=== PATIENT | female | born 1975 | race Caucasian/White ===

== ENCOUNTER → 2019-12-29 08:03 | Outpatient (BNVA) | payer SELFPAY | PROVIDERS: Family Provider Nurse Practitioner Family; PCP Nurse Practitioner Family; Visit Provider Specialist | DX: G40.309 Generalized idiopathic epilepsy and epileptic syndromes, not intractable, without status epilepticus (principal); R25.1 Tremor, unspecified; G96.9 Disorder of central nervous system, unspecified; F17.210 Nicotine dependence, cigarettes, uncomplicated | CPT/HCPCS: 99213 ==

== ENCOUNTER 2020-08-08 13:52 | Emergency (ER) | payer SELFPAY ==
[2020-08-08 14:11] VITALS: BP 117/78; PULSE 88; RESP 18; TEMP 36.5; O2SAT 97; BMI 28.1
[2020-08-08 16:10] LABS: Basophils # 0.1 10^3/uL (0.0-0.1); Basophils % 0.5 %; Eosinophils # 0.5 10^3/uL (0.0-0.8); Eosinophils % 3.9 %; Hematocrit 41.5 % (37.0-47.0); Hemoglobin 13.6 g/dL (11.5-15.3); Lymphocytes # 4.1 10^3/uL (0.8-4.8); Lymphocytes % 34.6 %; Mean Corpuscular HGB Conc 32.8 g/dL (30.0-36.0); Mean Corpuscular Hemoglobin 32.2 pg (28.0-34.0); Mean Corpuscular Volume 98.1 fL (81-99); Mean Platelet Volume 10.3 fL (7.4-10.4); Monocytes % 8.3 %; Neutrophils # 6.23 10^3/uL (1.8-7.7); Neutrophils % 52.4 %; Nucleated Red Blood Cells % 0 %; Platelet Count 295 10^3/cmm (130-400); Red Blood Count 4.23 10^6/uL (4.1-5.3); Red Cell Distribution Width 11.9 % (12.1-15.1); White Blood Count 11.9 10^3/uL (4.0-10.0)
[2020-08-08 16:26] LABS: HCG, Serum Qual Negative (Negative)
[2020-08-08 16:30] LABS: Alanine Aminotransferase 14 U/L (0-33); Albumin Level 3.9 g/dL (3.5-5.2); Alkaline Phosphatase 64 IU/L (35-105); Anion Gap 11.3 (5-19); Aspartate Amino Transferase 17 U/L (0-32); Blood Urea Nitrogen 14 mg/dL (6-20); Carbon Dioxide 26 mmol/L (22-29); Chloride 104 mmol/L (98-107); Globulin 3.3 g/dL (1.3-4.6); Glucose 103 mg/dL (65-115); Lipase 60 U/L (13-60); Osmolality Calculated 280 mOsm/kg (285-295); Potassium 4.3 mmol/L (3.5-5.1); Sodium 137 mmol/L (136-145); Total Bilirubin 0.3 mg/dL (0.15-1.2); Total Protein 7.2 g/dL (6.6-8.7)
--- NOTE | 2020-08-08 17:16 | W.ED.ABDPA2 ---
HPI - Abdominal Pain General: Chief Complaint: Abdominal Pain Stated Complaint: r abd pain Time Seen by Provider: 08/08/20 17:05 History of Present Illness: HPI narrative: Patient with right lower quadrant pain for last couple days. Mild she states she had symbolic vomit yesterday and this morning. Denies any dysuria denies any fever chills. MD elicited complaint: abdominal pain Onset (ago): day(s) Pain Consistency: constant Location: RLQ Severity: mild Quality: cramping Radiation: none Migration to: no migration Exacerbating factors: nothing Relieving factors: nothing Associated Symptoms: Reports nausea and vomiting; Denies chills, dysuria and fever(s) Review of Systems General: Reports: 10 or more systems reviewed and unremarkable except in HPI and below Const: Denies: fever(s), chills or diaphoresis Eyes: Denies: blurry vision or eye redness ENMT: Denies: throat pain, dental pain or disequilibrium Card: Denies: chest pain, palpitations or irregular heart rhythm Resp: Denies: dyspnea, productive cough, non-productive cough or wheezing GI: Reports: abdominal pain, nausea and vomiting : Denies: difficulty voiding or dysuria Musc: Denies: back pain Skin/Breast: Denies: rash or pruritus Neuro: Denies: headache(s), weakness in extremities or behavioral changes Ryan/Lymph: Denies: easy bruising PFSH ED PFSH: Family History (Updated 12/29/19 @ 08:20 by Princess Milton LPN) Other Diabetes Denies family history of Hypertension Stroke Social History (Updated 12/29/19 @ 08:21 by Princess Milton LPN) Smoking and tobacco status: current every day smoker cigarettes Packs smoked per day: 0.5 Alcohol intake: never Physical Exam Const: COMMON NORMALS: no acute distress, patient oriented x3, healthy appearing and alert GENERAL APPEARANCE: cooperative, comfortable and well hydrated HENMT: COMMON NORMALS: normocephalic, Normal external nose present and moist oral mucous membranes HEAD & SCALP: normocephalic NOSE: Normal external nose present Eye: COMMON NORMALS: Equal, round and reactive pupils present and EOMs intact bilaterally GENERAL EYE: appearance normal, both eyes and all related structures PUPIL: Yes Equal, round and reactive pupils present Neck/C-Spine: COMMON NORMALS: full ROM and no lymphadenopathy GENERAL: Yes normal visual inspection and Yes trachea midline CERVICAL SPINE: Yes cervical ROM normal Lymph: LYMPHATIC: no lymphadenopathy noted Chest: COMMONS NORMALS: normal inspection of the chest Resp: COMMON NORMALS: normal respiratory effort and clear to auscultation bilaterally AUSCULTATION: clear to auscultation bilaterally Cardio: COMMON NORMALS: regular rhythm, S1 normal heart sound present and S2 normal heart sound present RHYTHM: regular rhythm HEART SOUNDS: S1 normal heart sound present and S2 normal heart sound present GI: COMMON NORMALS: Soft to palpation and non-tender INSPECTION: Yes normal to inspection PALPATION: Yes Soft to palpation and Yes Tenderness to palpation present (GI) Details: RLQ : COMMON NORMALS: Yes no CVA tenderness BLADDER/KIDNEY EXAM: Yes no CVA tenderness Back/Pelvis: COMMON NORMALS: no CVA tenderness and thoracic and lumbar spine normal to inspection Extremity: COMMON NORMALS: normal to inspection and capillary refill normal Neuro: COMMON NORMALS: patient oriented x3 and no focal motor deficits SENSORIUM/ORIENTATION: Yes alert Psych: COMMON NORMALS: mental status grossly normal, Normal thought process present and cooperative ACTIVITY/MOTOR BEHAVIOR: Yes appropriate eye contact THOUGHT PROCESS: Normal thought process present Skin: COMMON NORMALS: no rashes or lesions noted and turgor normal GENERAL SKIN EXAM: no rashes or lesions noted and turgor normal Course Vital Signs: Vital signs: Vital Signs Temperature 97.7 F 08/08/20 14:11 Pulse Rate 88 08/08/20 14:11 Respiratory Rate 18 08/08/20 14:11 Blood Pressure 117/78 08/08/20 14:11 Pulse Oximetry 97 08/08/20 14:11 MDM - Abdominal Pain Lab Data: Labs: Lab Results 08/08/20 08/08/20 08/08/20 Range/Units 16:03 16:03 16:03 WBC 11.9 H (4.0-10.0) 10^3/ uL RBC 4.23 (4.1-5.3) 10^6/u L Hgb 13.6 (11.5-15.3) g/dL Hct 41.5 (37.0-47.0) % MCV 98.1 (81-99) fL MCH 32.2 (28.0-34.0) pg MCHC 32.8 (30.0-36.0) g/dL RDW 11.9 L (12.1-15.1) % Plt Count 295 (130-400) 10^3/c mm MPV 10.3 (7.4-10.4) fL Neut % (Auto) 52.4 % Lymph % (Auto) 34.6 % [place] % (Auto) 8.3 % Eos % (Auto) 3.9 % Baso % (Auto) 0.5 % Neut # (Auto) 6.23 (1.8-7.7) 10^3/u L Lymph # (Auto) 4.1 (0.8-4.8) 10^3/u L [place] # (Auto) 1.0 H (0.2-0.9) 10^3/u L Eos # (Auto) 0.5 (0.0-0.8) 10^3/u L Baso # (Auto) 0.1 (0.0-0.1) 10^3/u L Nucleated RBC % (a uto) 0 % Nucleated RBCs # 0.0 /100WBC Sodium 137 (136-145) mmol/L Potassium 4.3 (3.5-5.1) mmol/L Chloride 104 (98-107) mmol/L Carbon Dioxide 26 (22-29) mmol/L Anion Gap 11.3 (5-19) BUN 14 (6-20) mg/dL Creatinine 0.9 (0.5-0.9) mg/dL GFR Calculation 68.0 L (90-130) mL/min Glucose 103 (65-115) mg/dL Calculated Osmolal ity 280 L (285-295) mOsm/k g Calcium 9.0 (8.5-10.5) mg/dL Total Bilirubin 0.3 (0.15-1.2) mg/dL AST 17 (0-32) U/L ALT 14 (0-33) U/L Alkaline Phosphata se 64 (35-105) IU/L Total Protein 7.2 (6.6-8.7) g/dL Albumin 3.9 (3.5-5.2) g/dL Globulin 3.3 (1.3-4.6) g/dL Lipase 60 (13-60) U/L HCG, Qual Negative (Negative) Urine Color (Yellow) Urine Appearance (CLEAR) Urine pH (5-7) Ur Specific Gravit y (1.005-1.030) Urine Protein (Negative) Urine Glucose (UA) (Normal) Urine Ketones (Negative) Urine Blood (Negative) Urine Nitrate (Negative) Urine Bilirubin (NEGATIVE) Urine Urobilinogen (Negative) mg/dL Ur Leukocyte Juli ase (Negative) Urine RBC (0-2) /hpf Urine WBC (0-5) /hpf Ur Squamous Epith Cells (0-5) Amorphous Sediment Urine Bacteria (NONE) Urine Mucus 08/08/20 Range/Units 17:44 WBC (4.0-10.0) 10^3/ uL RBC (4.1-5.3) 10^6/u L Hgb (11.5-15.3) g/dL Hct (37.0-47.0) % MCV (81-99) fL MCH (28.0-34.0) pg MCHC (30.0-36.0) g/dL RDW (12.1-15.1) % Plt Count (130-400) 10^3/c mm MPV (7.4-10.4) fL Neut % (Auto) % Lymph % (Auto) % [place] % (Auto) % Eos % (Auto) % Baso % (Auto) % Neut # (Auto) (1.8-7.7) 10^3/u L Lymph # (Auto) (0.8-4.8) 10^3/u L [place] # (Auto) (0.2-0.9) 10^3/u L Eos # (Auto) (0.0-0.8) 10^3/u L Baso # (Auto) (0.0-0.1) 10^3/u L Nucleated RBC % (a uto) % Nucleated RBCs # /100WBC Sodium (136-145) mmol/L Potassium (3.5-5.1) mmol/L Chloride (98-107) mmol/L Carbon Dioxide (22-29) mmol/L Anion Gap (5-19) BUN (6-20) mg/dL Creatinine (0.5-0.9) mg/dL GFR Calculation (90-130) mL/min Glucose (65-115) mg/dL Calculated Osmolal ity (285-295) mOsm/k g Calcium (8.5-10.5) mg/dL Total Bilirubin (0.15-1.2) mg/dL AST (0-32) U/L ALT (0-33) U/L Alkaline Phosphata se (35-105) IU/L Total Protein (6.6-8.7) g/dL Albumin (3.5-5.2) g/dL Globulin (1.3-4.6) g/dL Lipase (13-60) U/L HCG, Qual (Negative) Urine Color Yellow (Yellow) Urine Appearance Cloudy (CLEAR) Urine pH 5 (5-7) Ur Specific Gravit y 1.030 (1.005-1.030) Urine Protein Neg (Negative) Urine Glucose (UA) Norm (Normal) Urine Ketones Negative (Negative) Urine Blood 3+ H (Negative) Urine Nitrate Negative (Negative) Urine Bilirubin Neg (NEGATIVE) Urine Urobilinogen Neg (Negative) mg/dL Ur Leukocyte Juli ase Trace H (Negative) Urine RBC 50-80 H (0-2) /hpf Urine WBC 40-55 H (0-5) /hpf Ur Squamous Epith Cells 5-10 H (0-5) Amorphous Sediment Not Reportable Urine Bacteria 1+ H (NONE) Urine Mucus 1+ Discharge Plan Discharge Patient Disposition: Home Clinical Impression: Abdominal pain Qualifiers: Abdominal location: right lower quadrant Qualified Code(s): R10.31 - Right lower quadrant pain Hematuria Qualifiers: Hematuria type: benign essential microscopic Qualified Code(s): R31.1 - Benign essential microscopic hematuria Condition: Stable Prescriptions: No Action levetiracetam [Keppra XR] 500 mg tablet extended release 24 hr 2,000 mg PO DAILY Qty: 120 RF: 11 propranolol 20 mg tablet 40 mg PO DAILY Qty: 60 RF: 11 Discharge Orders: Discharge Order (Routine); Ordered 08/08/20 Ordered By: Damon Ma Referrals: ALEJANDRA Reynaga, [employer] [Primary Care Provider] - Discharge Diet: As Directed Discharge Activity: Increase activity as tolerated Patient Instructions: Abdominal Pain (ED) Activity Restrictions/Additional Instructions: follow up with your health provider for further problems if they develop or return here if worsening of symptoms, recheck urine in 1 week Coding Level of Care Code ED Vacuum Drier Operator for g Fwd Exam Comprehensive
[2020-08-08 18:25] LABS: Glucose Urine UA Norm (Normal); Ketones Urine Negative (Negative); Protein Urine Neg (Negative); Urine Appearance Cloudy (CLEAR); Urine Color Yellow (Yellow); pH Urine 5 (5-7)
[2020-08-08 18:26] LABS: Add Urine Microscopic? YES; Bacteria Urine 1+; Bilirubin Urine Neg (NEGATIVE); Blood Urine 3+ (Negative); Leukocyte Esterase Urine Trace (Negative); Mucus Urine 1+; Nitrate Urine Negative (Negative); RBC Urine 50-80 /hpf (0-2); Urobilinogen Urine Neg (Negative); WBC Urine 40-55 /hpf (0-5)
[2020-08-08 18:27] LABS: Add Urine Culture? Yes
[2020-08-08 18:50] VITALS: BP 118/74; PULSE 72; RESP 17; O2SAT 98
== END 2020-08-08 18:53 | disposition home or self-care (01) ==
PROVIDERS: Family Medicine; Emergency Provider Nurse Practitioner Family; PCP Nurse Practitioner Family
DX: R10.31 Right lower quadrant pain (principal); R31.1 Benign essential microscopic hematuria; F17.210 Nicotine dependence, cigarettes, uncomplicated
CPT/HCPCS: 12345; 36415; 80053; 81001; 83690; 84703; 85025; 87086; 96374; 99282; 99283

== ENCOUNTER → 2020-12-25 08:48 | Outpatient (BNVA) | payer SELFPAY | PROVIDERS: PCP Nurse Practitioner Family; Visit Provider Specialist | DX: R25.1 Tremor, unspecified (principal); G96.9 Disorder of central nervous system, unspecified; G40.309 Generalized idiopathic epilepsy and epileptic syndromes, not intractable, without status epilepticus; F17.210 Nicotine dependence, cigarettes, uncomplicated | CPT/HCPCS: 99213 ==

== ENCOUNTER → 2021-05-02 08:12 | Outpatient (BNVA) | payer SELFPAY | PROVIDERS: PCP Nurse Practitioner Family; Visit Provider Specialist | DX: R25.1 Tremor, unspecified (principal); G96.9 Disorder of central nervous system, unspecified; G40.309 Generalized idiopathic epilepsy and epileptic syndromes, not intractable, without status epilepticus; F17.210 Nicotine dependence, cigarettes, uncomplicated | CPT/HCPCS: 99213 ==

== ENCOUNTER 2021-06-13 06:52 | Inpatient (IN) | payer SELFPAY ==
[2021-06-13 07:05] VITALS: BP 143/106; PULSE 107; RESP 20; TEMP 37.4; O2SAT 98; BMI 26.6
--- NOTE | 2021-06-13 07:24 | W.ED.PSYCH ---
HPI - Psych General: Chief Complaint: Psychiatric Symptoms Stated Complaint: unable to sleep x 4 days Time Seen by Provider: 06/13/21 07:01 History of Present Illness: HPI Narrative: 46-year-old female presents emergency room with her mother. She is very hesitant even to go to the room initially. When I asked her what brought her in today and what we could help her with she did not really want to answer until her mother left the room. Once her mother left the room she afforded us that she had enough money to buy the hospital. She also states that she has more money than Caio Herrmann on several buildings downtown [facility]. She states she had a vision from God several years ago and she should not be with her and still gets visions from God. She offered myself and the nursing staff on $1 million to be in a movie that she would be making. She admits she has not slept for the last 4 days. She denies previous psychiatric hospitalizations she denies any suicidal or homicidal ideation. MD complaint: altered mental status Onset (ago): day(s) Duration: constant Relieving factors: none Exacerbating factors: none Associated psychiatric symptoms: none Associated symptoms: Reports auditory hallucinations, visual hallucinations, delusions and racing thoughts Treatments prior to arrival: none Review of Systems Const: Denies: fever(s), chills, body aches, change in appetite, fatigue or malaise ENMT: Denies: throat pain, ear or mastoid pain, nasal discharge or nasal congestion Card: Denies: chest pain, edema, dyspnea on exertion or orthopnea Resp: Denies: dyspnea, productive cough or non-productive cough GI: Denies: abdominal pain, nausea, vomiting, hematemesis, coffee ground emesis, diarrhea, constipation, bloating, hematochezia or melena : Denies: flank pain, difficulty voiding, dysuria, urinary frequency or urinary urgency Skin/Breast: Denies: rash or pruritus Psych: Reports: visual hallucinations and auditory hallucinations PFSH ED PFSH: Family History Other Diabetes Denies family history of Hypertension Stroke Social History Smoking and tobacco status: current every day smoker cigarettes Packs smoked per day: 0.5 Alcohol intake: never Physical Exam Const: COMMON NORMALS: no acute distress GENERAL APPEARANCE: cooperative and comfortable ORIENTATION/CONSCIOUSNESS: Yes awake, Yes oriented to person, Yes oriented to place and Yes oriented to time HENMT: COMMON NORMALS: normocephalic, atraumatic, hearing grossly normal bilaterally and external ears normal HEAD & SCALP: normocephalic and atraumatic EXTERNAL EAR: Yes external ears normal Neck/C-Spine: COMMON NORMALS: no JVD Resp: COMMON NORMALS: normal respiratory effort, No retractions, No use of accessory muscles and clear to auscultation bilaterally AUSCULTATION: clear to auscultation bilaterally Cardio: COMMON NORMALS: no JVD, regular rate, regular rhythm and No murmurs present (Cardio) RATE: regular rate RHYTHM: regular rhythm Neuro: SENSORIUM/ORIENTATION: Yes oriented to person, Yes oriented to place and Yes oriented to time Psych: THOUGHT CONTENT: Yes delusions Skin: COMMON NORMALS: no rashes or lesions noted GENERAL SKIN EXAM: no rashes or lesions noted Course Vital Signs: Vital signs: Vital Signs Temperature 98.8 F 06/13/21 14:00 Pulse Rate 79 06/13/21 14:00 Respiratory Rate 20 H 06/13/21 14:00 Blood Pressure 122/82 06/13/21 14:00 Pulse Oximetry 95 06/13/21 14:00 MDM - Psych MDM Narrative: Medical decision making narrative: Patient in a manic-like state with paranoid delusions and delusions of grandeur. She states she is worse large sums of money she is going to buy the hospital she does offers the staff $1 million each to do different things or to act in a movie she talks about direct visions from God and instruction. She is having auditory and visual hallucinations with this as well we will go ahead and admit her on a 96-hour hold discussed with Dr. Alonzo orders are written Lab Data: Labs: Lab Results 06/13/21 06/13/21 06/13/21 Range/Units 07: 07: 07:57 WBC 14.5 H (4.0-10.0) 10^3/ uL RBC 4.17 (4.1-5.3) 10^6/u L Hgb 13.3 (11.5-15.3) g/dL Hct 38.9 (37.0-47.0) % MCV 93.3 (81-99) fL MCH 31.9 (28.0-34.0) pg MCHC 34.2 (30.0-36.0) g/dL RDW 12.0 L (12.1-15.1) % Plt Count 318 (130-400) 10^3/c mm MPV 10.6 H (7.4-10.4) fL Neut % (Auto) 73.3 % Lymph % (Auto) 17.8 % Marshall % (Auto) 6.8 % Eos % (Auto) 1.1 % Baso % (Auto) 0.7 % Neut # (Auto) 10.60 H (1.8-7.7) 10^3/u L Lymph # (Auto) 2.6 (0.8-4.8) 10^3/u L Marshall # (Auto) 1.0 H (0.2-0.9) 10^3/u L Eos # (Auto) 0.2 (0.0-0.8) 10^3/u L Baso # (Auto) 0.1 (0.0-0.1) 10^3/u L Nucleated RBC % (a uto) 0 % Nucleated RBCs # 0.0 /100WBC Sodium 138 (136-145) mmol/L Potassium 3.9 (3.5-5.1) mmol/L Chloride 103 (98-107) mmol/L Carbon Dioxide 23 (22-29) mmol/L Anion Gap 15.9 (5-19) BUN 14 (6-20) mg/dL Creatinine 0.8 (0.5-0.9) mg/dL GFR Calculation 77.6 L (90-130) mL/min Glucose 136 H (65-115) mg/dL Calculated Osmolal ity 289 (285-295) mOsm/k g Calcium 8.9 (8.5-10.5) mg/dL Total Bilirubin 0.6 (0.15-1.2) mg/dL AST 29 (0-32) U/L ALT 16 (0-33) U/L Alkaline Phosphata se 82 (35-105) IU/L Total Protein 7.4 (6.6-8.7) g/dL Albumin 4.2 (3.5-5.2) g/dL Globulin 3.2 (1.3-4.6) g/dL HCG, Qual Negative (Negative) Urine Color (Yellow) Urine Appearance (CLEAR) Urine pH (5-7) Ur Specific Gravit y (1.005-1.030) Urine Protein (Negative) Urine Glucose (UA) (Normal) Urine Ketones (Negative) Urine Blood (Negative) Urine Nitrate (Negative) Urine Bilirubin (Negative) Urine Urobilinogen (Negative) mg/dL Ur Leukocyte Juli ase (Negative) Urine RBC (0-2) /hpf Urine WBC (0-5) /hpf Ur Squamous Epith Cells (0-5) /hpf Amorphous Sediment Urine Bacteria (NONE) /hpf Salicylates 2.6 L (3-10) mg/dL Urine Opiates Scre en (Negative) ng/mL Acetaminophen < 5.0 L (10-30) ug/mL Ur Barbiturates Sc reen (Negative) ng/mL Ur Phencyclidine S crn (Negative) ng/mL Ur Amphetamines Sc reen (Negative) ng/mL U Benzodiazepines Scrn (Negative) ng/mL Urine Cocaine Scre en (Negative) ng/mL U Marijuana (THC) Screen (Negative) ng/mL 06/13/21 06/13/21 Range/Units 07:57 07:57 WBC (4.0-10.0) 10^3/ uL RBC (4.1-5.3) 10^6/u L Hgb (11.5-15.3) g/dL Hct (37.0-47.0) % MCV (81-99) fL MCH (28.0-34.0) pg MCHC (30.0-36.0) g/dL RDW (12.1-15.1) % Plt Count (130-400) 10^3/c mm MPV (7.4-10.4) fL Neut % (Auto) % Lymph % (Auto) % Marshall % (Auto) % Eos % (Auto) % Baso % (Auto) % Neut # (Auto) (1.8-7.7) 10^3/u L Lymph # (Auto) (0.8-4.8) 10^3/u L Marshall # (Auto) (0.2-0.9) 10^3/u L Eos # (Auto) (0.0-0.8) 10^3/u L Baso # (Auto) (0.0-0.1) 10^3/u L Nucleated RBC % (a uto) % Nucleated RBCs # /100WBC Sodium (136-145) mmol/L Potassium (3.5-5.1) mmol/L Chloride (98-107) mmol/L Carbon Dioxide (22-29) mmol/L Anion Gap (5-19) BUN (6-20) mg/dL Creatinine (0.5-0.9) mg/dL GFR Calculation (90-130) mL/min Glucose (65-115) mg/dL Calculated Osmolal ity (285-295) mOsm/k g Calcium (8.5-10.5) mg/dL Total Bilirubin (0.15-1.2) mg/dL AST (0-32) U/L ALT (0-33) U/L Alkaline Phosphata se (35-105) IU/L Total Protein (6.6-8.7) g/dL Albumin (3.5-5.2) g/dL Globulin (1.3-4.6) g/dL HCG, Qual (Negative) Urine Color Colorless (Yellow) Urine Appearance Clear (CLEAR) Urine pH 7 (5-7) Ur Specific Gravit y 1.005 (1.005-1.030) Urine Protein Neg (Negative) Urine Glucose (UA) Norm (Normal) Urine Ketones Negative (Negative) Urine Blood 3+ H (Negative) Urine Nitrate Negative (Negative) Urine Bilirubin Neg (Negative) Urine Urobilinogen Norm (Negative) mg/dL Ur Leukocyte Juli ase Negative (Negative) Urine RBC 0-4 H (0-2) /hpf Urine WBC None (0-5) /hpf Ur Squamous Epith Cells 10-15 H (0-5) /hpf Amorphous Sediment Not Reportable Urine Bacteria None (NONE) /hpf Salicylates (3-10) mg/dL Urine Opiates Scre en Negative (Negative) ng/mL Acetaminophen (10-30) ug/mL Ur Barbiturates Sc reen Negative (Negative) ng/mL Ur Phencyclidine S crn Negative (Negative) ng/mL Ur Amphetamines Sc reen Negative (Negative) ng/mL U Benzodiazepines Scrn Negative (Negative) ng/mL Urine Cocaine Scre en Negative (Negative) ng/mL U Marijuana (THC) Screen Negative (Negative) ng/mL Discharge Plan Discharge Patient Disposition: Admitted As Inpatient Admit Provider: Taylor Alonzo Clinical Impression: Acute psychosis, Psychotic disorder, Tremor due to disorder of central nervous system Condition: Stable Coding Level of Care Code ED Preventative Maintenance Technician for Shemarg Fwd Exam Detailed
[2021-06-13 07:29] LABS: Basophils # 0.1 10^3/uL (0.0-0.1); Basophils % 0.7 %; Eosinophils # 0.2 10^3/uL (0.0-0.8); Eosinophils % 1.1 %; Hematocrit 38.9 % (37.0-47.0); Hemoglobin 13.3 g/dL (11.5-15.3); Lymphocytes # 2.6 10^3/uL (0.8-4.8); Lymphocytes % 17.8 %; Mean Corpuscular HGB Conc 34.2 g/dL (30.0-36.0); Mean Corpuscular Hemoglobin 31.9 pg (28.0-34.0); Mean Corpuscular Volume 93.3 fL (81-99); Mean Platelet Volume 10.6 fL (7.4-10.4); Monocytes % 6.8 %; Neutrophils % 73.3 %; Nucleated Red Blood Cells % 0 %; Platelet Count 318 10^3/cmm (130-400); Red Blood Count 4.17 10^6/uL (4.1-5.3); White Blood Count 14.5 10^3/uL (4.0-10.0)
[2021-06-13 07:48] LABS: Alanine Aminotransferase 16 U/L (0-33); Albumin Level 4.2 g/dL (3.5-5.2); Alkaline Phosphatase 82 IU/L (35-105); Anion Gap 15.9 (5-19); Aspartate Amino Transferase 29 U/L (0-32); Blood Urea Nitrogen 14 mg/dL (6-20); Calcium 8.9 mg/dL (8.5-10.5); Carbon Dioxide 23 mmol/L (22-29); Chloride 103 mmol/L (98-107); Globulin 3.2 g/dL (1.3-4.6); Glomerular Filtration Rate 77.6 mL/min (90-130); Glucose 136 mg/dL (65-115); Osmolality Calculated 289 mOsm/kg (285-295); Potassium 3.9 mmol/L (3.5-5.1); Salicylate 2.6 mg/dL (3-10); Sodium 138 mmol/L (136-145); Total Bilirubin 0.6 mg/dL (0.15-1.2); Total Protein 7.4 g/dL (6.6-8.7)
[2021-06-13 07:49] LABS: Acetaminophen < 5.0 ug/mL (10-30)
[2021-06-13] MEDS: LORazepam 2 mg/mL INJ 1 mL 1 MG IM (07:58)
[2021-06-13] MEDS: OLANZapine 5 mg ODT PO (07:59)
[2021-06-13 08:04] LABS: HCG Qualitative Urine. Negative (Negative)
--- NOTE | 2021-06-13 08:20 | PC.NURSE ---
Small tick removed from right flank area
[2021-06-13 08:26] VITALS: BP 140/77; PULSE 79; RESP 18; O2SAT 95
--- NOTE | 2021-06-13 08:47 | PC.PHAR ---
pt states she takes care of her own medications-pt states she stop taking the carbidopa-levodopa a few weeks ago-pt states she didnt take it like it was prescribed-ext med history shows last filled on 05/02/21 15d/s-pt states she takes her keppra xr 750mg qpm-ext med history shows last filled on 05/02/21 30d/s for 1500mg daily
--- NOTE | 2021-06-13 09:13 | PC.NURSE ---
Patient was given medication to calm her down and is currently sleeping. Vitals at 0900 not done due to not disturbing patient.
[2021-06-13 09:33] LABS: Add Urine Microscopic? YES; Bilirubin Urine Neg (Negative); Blood Urine 3+ (Negative); Glucose Urine UA Norm (Normal); Ketones Urine Negative (Negative); Leukocyte Esterase Urine Negative (Negative); Nitrate Urine Negative (Negative); Protein Urine Neg (Negative); RBC Urine 0-4 /hpf (0-2); Specific Gravity, Urine 1.005 (1.005-1.030); Urine Appearance Clear (CLEAR); Urine Color Colorless (Yellow); Urobilinogen Urine Norm (Negative); pH Urine 7 (5-7)
[2021-06-13 09:45] LABS: Amphetamines Screen Urine Negative (Negative); Barbiturates Screen Urine Negative (Negative); Benzodiazepines Screen Urine Negative (Negative); Cocaine Screen Urine Negative (Negative); Opiate Screen Urine Negative (Negative); PCP Screen Urine Negative (Negative); THC Screen Urine Negative (Negative)
[2021-06-13 10:19] VITALS: BP 118/74; PULSE 64; RESP 19; TEMP 37.1; O2SAT 96
[2021-06-13 10:56] VITALS: BP 122/82; PULSE 79; RESP 20; TEMP 37.1; O2SAT 95
[2021-06-13] MEDS: OLANZapine 10 mg TABLET PO (11:37)
--- NOTE | 2021-06-13 13:42 | P.HP_ITS ---
Providers/Chief Complaint Admitting Physician: Taylor Alonzo DO Primary Care Provider: Ritu Lieberman MD Chief Complaint: unable to sleep x 4 days HPI NPU History of Present Illness Carmen Bruno is a 46 year old female seizures and no reported past psychiatric history presented to the emergency department with family secondary to concerns of patient's pressured speech, delusional thoughts and not sleeping over the past 4 days. Patient states that she had not slept for the past 4 days but does not recall any incidents or ingestion of any intoxicants other than her daily use of marijuana for which she states she typically smokes 1 joint a day at most and does not recall any changes from her usual use. She denies using any other illicit substances and denies any use of alcohol. Patient's last neurology outpatient visit in May indicated that she is supposed to be on Sinemet but patient reports no use of any Sinemet and reports Keppra as her only medication that she takes daily. Patient was trying to leave the ER and was provided a dose of olanzapine 5 mg while in emergency department. Patient had been medically cleared prior to admission. Patient denies any past or current depressive symptoms, denies any sustained low mood states, denies any past major depressive episodes and denies any past or current suicidal ideation or any history of suicide attempts or self-harm behavior. Patient describes a previous similar episode of having racing thoughts approximately 3 years ago which she states only lasted for a day or 2 which she describes as I have a bunch of things inside of my head that are trying to get out. She denies any periods of pressured speech, impulsive or reckless behavior. Patient reports that she has had past auditory hallucinations approximately 3 years ago but currently denies any auditory hallucinations. She denies any visual hallucinations but continues to speak with hyper lutheran themed delusi ons believing that her [id number] is possessed by demons and that voices are telling her to leave her . Psychiatric review of systems is otherwise negative. Patient denies past psychiatric treatment and denies past psychiatric hospitalizations but is currently followed by Dr. Lieberman outpatient for history of seizures. 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 Review of Systems General: Reports: 10 or more systems reviewed and unremarkable except in HPI and below Meds NPU Home Medications Medication Instructions Recorded Confirmed Last Taken Type Keppra XR 750 mg PO QPM 06/13/21 06/13/21 Unknown History acetaminophen [Tylenol Extra 1,000 mg PO PRN 06/13/21 06/13/21 Unknown History Strength] Allergies Allergy/AdvReac Type Severity Reaction Status Date / Time No Known Allergies Allergy Verified 06/13/21 08:47 PFSH NPU PFSH: Family History Other Diabetes Denies family history of Hypertension Stroke Social History Smoking and tobacco status: current every day smoker cigarettes Packs smoked per day: 0.5 Alcohol intake: never Other Psychiatric History: Other Psychiatric History: Per above, denies any past psychiatric treatment Denies any history of suicide attempts or self-harm behavior Mental Status Exam MSE Comments: Appears stated age, lying in bed, disheveled, unkempt, tired appearing, fair rapport Psychomotor activity is neither increased nor decreased, no agitation Speech is somewhat slow, low volume, spontaneous, fair articulation, not pressured I feel okay, constricted affect, not labile Alert but soporific, oriented to person, place Memory and concentration are fair per interview Intellectual functioning appears to be average based on vocabulary, interview Thought process, some delays, linear, no current flight of ideas Thought content, some grandiose delusions, does not appear to be attending to any internal stimuli, no suicidal or homicidal ideation Insight and judgment appear to be limited at this time Vitals/I&O/Wt Last Vital Signs Temp 98.8 F 06/13/21 10:56 Pulse 79 06/13/21 10:56 Resp 20 H 06/13/21 10:56 BP 122/82 06/13/21 10:56 Pulse Ox 95 06/13/21 10:56 Weight last 48 hrs Weight 77.111 kg Data NPU : 06/13/21 07:21 06/13/21 07:21 A&P Assessment and plan (1) Psychotic disorder: Status: Acute Qualifiers: Psychosis type: unspecified psychosis type Qualified Code(s): F29 - Unspecified psychosis not due to a substance or known physiological condition (2) Generalized epilepsy: Status: Acute (3) Tremor due to disorder of central nervous system: Status: Acute Additional A&P Information Patient with no reported past psychiatric history presents with [facility] with unclear precipitating factors and vague description of past manic episode 3 years ago with history of seizure disorder. Patient presenting with auditory hallucinations and grandiose, hyper lutheran themed delusions. INVOLUNTARY ADMIT to inpatient psychiatry START olanzapine 10 mg by mouth twice daily targeting psychotic, mood symptoms CONTINUE Keppra 1000 mg twice daily (patient takes Keppra XR 700 mg daily at home but this medication is not on formulary. Per patient's outpatient note she had previously been controlled on Keppra 1000 mg twice daily Coordinate with social work post discharge mental health care follow-up Involuntary Hold Information 96 Hour Hold: 96 Hour Involuntary Admission: Yes 96 Hour Hold Ending Date: 06/19/21 96 Hour Hold Ending Time: 07:00 Attestations NPU Medical Necessity Statement*: Psychiatric hospitalization is indicated for medication stabilization, coordination for safe discharge Anticipate hospital stay to exceed 2 midnights Time Spent in Patient Care: Greater than 35 minutes (>than 50% of time spent in counselling and/or direct pt care on unit) . Coding Level of Care Code Acute Library Technology Instructor for Rey Rojo Diagnoses Psychotic disorder F29 Psychosis type: unspecified psychosis type Generalized epilepsy G40.309 Tremor due to disorder of central nervous system R25.1; G96.9
[2021-06-13 14:00] VITALS: BP 122/82; PULSE 79; RESP 20; TEMP 37.1; O2SAT 95
--- NOTE | 2021-06-13 17:41 | PC.NURSE ---
pt refused to take Zyprexa 10mg at [facility] and only wanted to take half of her dose of Keppra. Dose ordered for Keppra 1000mg pt only took 500mg of Keppra. Pt stated that she doesn't want to be billed for the meds that she refused to take. Pt stated that Keppra makes her sleepy and not motivated to leave her home. Will continue to monitor this pt.
[2021-06-13] MEDS: levETIRAcetam 500 mg Tablet PO (18:07)
[2021-06-13 19:47] VITALS: BP 111/73; PULSE 103; RESP 23; TEMP 36.5; O2SAT 96
--- NOTE | 2021-06-14 04:06 | PC.NURSE ---
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 this Hospital is going to change, she went into the dayroom with staff to say that she was redecorating the entire facility. pt is wandering up and down the graham. She has been to the window on several occasions requesting paper to draw floor plans for her room and the entire female hallway to refinish with her blessing from the movie she is making. At times, the demands to accompany her to see the changes she is planning is intrusive. She is polite, easy to redirect, but feels entitled to the time it takes to undertake this process completely without regard for other duties staff must complete.
--- NOTE | 2021-06-14 04:14 | PC.NURSE ---
No Sleep Pt has not slept this shift. She has been up and down the hallway. She refuses PRN medications to enable her to slow down and rest. She has not closed her eyes at all this shift and states, I have so much going on in my brain, I can not lay down right now.
[2021-06-14 06:00] VITALS: BP 118/76; PULSE 66; RESP 20; TEMP 36.8; O2SAT 97
[2021-06-14] MEDS: OLANZapine 10 mg TABLET PO (08:39)
[2021-06-14] MEDS: levETIRAcetam 500 mg Tablet 1000 MG PO (08:39)
--- NOTE | 2021-06-14 10:26 | P.PN_ITS ---
Subjective NPU Subjective: Interval history: Carmen presents today very confused about the process of her being in the hospital. She wanted to know when she could check out given that she had signed herself in while she was holding the piece of paper identifying that she was on a 96-hour hold. She identified herself as being fine without issue but then also described himself as getting messages from God but then when asked about the voice of God she said it was more like visions that he gave and that she was waiting on the entity that can communicate with the patient needs better to come but she cannot explain that any further. I discussed with her the fact that she appeared to be suffering from psychosis and that she would benefit from a medication like Abilify or Invega and she iden tified that she did not want take medication. I explained to her that her current condition that we would need to keep her until she was thinking more clearly. Advised her that taking medication should clear that much more quickly and allow her to be discharged. Also explained the process that could include the 96-hour hold that did not include the weekends because he was counting hours followed by a additional 21-day hold if we submit the paperwork. Mental Status Exam MSE Comments: This is a well-nourished, well-developed white female in hospital scrubs with limited grooming but adequate eye contact. No abnormal movements. Somewhat cooperative with exam and occasional distress. Speech was normal rate and volume. Mood described as good affect odd. Thought process organized, thought content: Patient denied suicidal or homicidal ideation, there were no delusions reported be clear paranoid, persecutory and hyper hindu delusions noted, she denied auditory or visual hallucinations but described auditory and visual. Attention and concentration were intermittent and memory seemed unreliable but none were formally tested. She is alert and oriented times person and place. Insight and judgment are fair and impulse control is limited. Vitals/I&O/Wt Last Vital Signs Temp 98.2 F 06/14/21 06:00 Pulse 66 06/14/21 06:00 Resp 20 H 06/14/21 06:00 BP 118/76 06/14/21 06:00 Pulse Ox 97 06/14/21 06:00 Weight last 48 hrs Weight 77.111 kg Data NPU : 06/13/21 07:21 06/13/21 07:21 A&P Assessment and plan (1) Acute psychosis: Status: Acute (2) Psychotic disorder: Status: Acute (3) Generalized epilepsy: Status: Acute (4) Tremor due to disorder of central nervous system: Status: Acute Additional A&P Information This is a 46-year-old white female who presents with clear jacob psychosis and confusion about the circumstances of her hospitalization who presents unwilling to consider medication. 1. Continue current medication. We will continue to recommend medication. 2. Continue every 15 minute checks for safety. 3. Encourage individual, group and milieu therapies. 4. We will likely need to file a 21-day hold if she is resistant to medication through the weekend. Involuntary Hold Information 96 Hour Hold: 96 Hour Involuntary Admission: Yes 96 Hour Hold Ending Date: 06/19/21 96 Hour Hold Ending Time: 07:00 Attestations U Medical Necessity Statement*: Inpatient hospitalization is medically necessary and the clinically appropriate intervention at this time. We will monitor medications and make changes as indicated. Patient will be in the hospital for over two midnights. Likely length of stay 3 to 5 days. Coding Level of Care Code Acute Commercial Credit Head for Rey Rojo Diagnoses Acute psychosis F23 Psychotic disorder F29 Generalized epilepsy G40.309 Tremor due to disorder of central nervous system R25.1; G96.9
[2021-06-14 14:00] VITALS: BP 131/84; PULSE 62; RESP 18; TEMP 35.9; O2SAT 92
[2021-06-14 22:00] VITALS: BP 126/90; PULSE 76; RESP 18; TEMP 36.9; O2SAT 97
--- NOTE | 2021-06-15 03:10 | PC.NURSE ---
Pt. anxious; can't sleep. Vistaril 50mg given
[2021-06-15 06:00] VITALS: RESP 17
[2021-06-15] MEDS: OLANZapine 10 mg TABLET PO ×2 (08:12→18:05)
[2021-06-15 14:00] VITALS: BP 122/86; PULSE 72; RESP 18; TEMP 36.7; O2SAT 96
[2021-06-15] MEDS: levETIRAcetam 500 mg Tablet 1500 MG PO (18:05)
--- NOTE | 2021-06-15 18:58 | P.PN_ITS ---
Subjective NPU Subjective: Interval history: Carmen presents today reporting that things are going well as he wants to leave. She continued to make odd statements about worries she was having about someone or something but could not be specific or create clarity about what she meant. As I pressed about what she was speaking about she was not talking and does have a strange look on her face. She continued to refuse recommendations about a trial of a new medication. I once again discussed Abilify and Invega explained to her that ultimately either of them could become monthly treatments if not less than monthly. Mental Status Exam MSE Comments: This is a well-nourished, well-developed white female in hospital scrubs with limited grooming but adequate eye contact. No abnormal movements. Somewhat cooperative with exam in occasional distress. Speech was normal rate and volume. Mood described as good affect odd. Thought process organized, thought content: Patient denied suicidal or homicidal ideation, there were no delusions reported but clear paranoid, persecutory and hyper zoroastrian delusions noted, she denied auditory or visual hallucinations but described auditory and visual. Attention and concentration were intermittent and memory seemed unreliable but none were formally tested. She is alert and oriented times person and place. Insight and judgment are fair and impulse control is limited. Vitals/I&O/Wt Last Vital Signs Temp 97.7 F 06/15/21 21:10 Pulse 71 06/15/21 21:10 Resp 20 H 06/15/21 21:10 BP 125/86 06/15/21 21:10 Pulse Ox 100 06/15/21 21:10 Data NPU : 06/13/21 07:21 06/13/21 07:21 A&P Additional A&P Information (1) Acute psychosis: (2) Psychotic disorder: (3) Generalized epilepsy: (4) Tremor due to disorder of central nervous system: Additional A&P Information This is a 46-year-old white female who presents with clear jacob psychosis and confusion about the circumstances of her hospitalization who presents unwilling to consider medication. 1. Continue current medication. We will continue to recommend medication. 2. Continue every 15 minute checks for safety. 3. Encourage individual, group and milieu therapies. 4. We will likely need to file a 21-day hold if she is resistant to medication through the weekend. Involuntary Hold Information 96 Hour Hold: 96 Hour Involuntary Admission: Yes 96 Hour Hold Ending Date: 06/19/21 96 Hour Hold Ending Time: 07:00 Attestations NPU Medical Necessity Statement*: Inpatient hospitalization is medically necessary and the clinically appropriate intervention at this time. We will monitor med ications and make changes as indicated. Likely length of stay 3 to 5 days. Coding Level of Care Code Acute Spoilage Worker for Rey Rojo
[2021-06-15 21:10] VITALS: BP 125/86; PULSE 71; RESP 20; TEMP 36.5; O2SAT 100
[2021-06-16] MEDS: haloperidol 5 mg Tablet PO (01:27)
[2021-06-16] MEDS: trazodone 50 mg Tablet PO (01:28)
--- NOTE | 2021-06-16 01:29 | PC.NURSE ---
Patient pacing halls, requesting things like I want to go out on the porch , where is the garage . I want to talk to my father, he is right over there Reoriented Patient several times. Offered her medication to help her rest. She originally declined but then said yes she would like something to help her rest. 50mg Trazodone PO and due to degree of V/H and flight of thought 5mg Haldol PO was given. Patient has scheduled Zyprexa 10mg BID, Given Max dose of zyprexa is 20mg/day. Haldol was given.
[2021-06-16 06:00] VITALS: BP 104/72; PULSE 71; RESP 18; TEMP 36.5; O2SAT 99
[2021-06-16] MEDS: OLANZapine 10 mg TABLET PO ×2 (08:24→17:14)
[2021-06-16 14:00] VITALS: BP 109/77; PULSE 87; RESP 18; TEMP 35.9; O2SAT 93
[2021-06-16] MEDS: levETIRAcetam 500 mg Tablet 1500 MG PO (17:14)
--- NOTE | 2021-06-16 18:47 | P.PN_ITS ---
Subjective NPU Subjective: Interval history: Carmen presented reporting that there was something that she wondered if I believed. But when I try to get her to explain me what she wondered about she may a strange face and looks oddly around the room. I explained to her again about why I want her to try Abilify or Invega and we discussed the risks, benefits and alternatives ingested that he proceed as is documented in this note. She asked about how medication works, and what it does. And appeared to understand the explanation. Mental Status Exam MSE Comments: This is a well-nourished, well-developed white female in hospital scrubs with limited grooming but adequate eye contact. No abnormal m ovements. Somewhat cooperative with exam in occasional distress. Speech was normal rate and volume. Mood described as scared, affect odd. Thought process organized, thought content: Patient denied suicidal or homicidal ideation, there were no delusions reported but clear paranoid, persecutory and hyper taoist delusions noted, she denied auditory or visual hallucinations but described auditory and visual. Attention and concentration were intermittent and memory seemed unreliable but none were formally tested. She is alert and oriented times person and place. Insight and judgment are fair and impulse control is limited. Vitals/I&O/Wt Last Vital Signs Temp 96.6 F L 06/16/21 14:00 Pulse 87 06/16/21 14:00 Resp 18 06/16/21 14:00 BP 109/77 06/16/21 14:00 Pulse Ox 93 06/16/21 14:00 Data NPU : 06/13/21 07:21 06/13/21 07:21 A&P Additional A&P Information (1) Acute psychosis: (2) Psychotic disorder: (3) Generalized epilepsy: (4) Tremor due to disorder of central nervous system: Additional A&P Information This is a 46-year-old white female who presents with clear jacob psychosis and confusion about the circumstances of her hospitalization who presents unwilling to consider medication. 1. Continue current medication. Start Abilify 10 mg p.o. every morning and titrate to effect. With positive response will likely decrease the Zyprexa. 2. Continue every 15 minute checks for safety. 3. Encourage individual, group and milieu therapies. 4. We will likely need to file a 21-day hold if she is resistant to medication through the weekend. Involuntary Hold Information 96 Hour Hold: 96 Hour Involuntary Admission: Yes 96 Hour Hold Ending Date: 06/19/21 96 Hour Hold Ending Time: 07:00 Attestations NPU Medical Necessity Statement*: Inpatient hospitalization is medically necessary and the clinically appropriate intervention at this time. We will monitor medications and make changes as indicated. Likely length of stay 3 to 5 days. Coding Level of Care Code Acute Household Personal Assistant for Rey Rojo
[2021-06-16] MEDS: ARIPiprazole 10 mg Tablet PO (19:15)
[2021-06-16 22:00] VITALS: BP 111/75; PULSE 60; RESP 17; TEMP 36.4; O2SAT 96
[2021-06-17] MEDS: trazodone 50 mg Tablet PO (00:46)
[2021-06-17] MEDS: haloperidol 5 mg Tablet PO (00:46)
[2021-06-17 06:00] VITALS: BP 110/66; PULSE 62; RESP 17; TEMP 36.6; O2SAT 97
[2021-06-17] MEDS: OLANZapine 10 mg TABLET PO ×2 (09:35→17:51)
[2021-06-17] MEDS: ARIPiprazole 10 mg Tablet PO (09:35)
--- NOTE | 2021-06-17 11:27 | P.PN_ITS ---
Subjective NPU Subjective: Interval history: Patient presents today reporting that she is having no problems with the Abilify. She did not bring up the thoughts that she was bringing up regularly but when she was asked about them she said she still believe them but clearly seemed less on the front of her mind. She denied any side effects of the medication. Reports eating and sleeping okay. Mental Status Exam MSE Comments: This is a well-nourished, well-developed white female in hospital scrubs with limited grooming but adequate eye contact. No abnormal movements. Somewhat cooperative with exam in no acute distress. Speech was normal rate and volume. Mood described as okay affect odd. Thought process organized, thought content: Patient denied suicidal or homicidal ideation, there were no delusions reported but clear paranoid, persecutory and hyper taoist delusions noted, she denied auditory or visual hallucinations but described auditory and visual. Attention and concentration were intermittent and memory seemed unreliable but none were formally tested. She is alert and oriented times person and place. Insight and judgment are fair and impulse control is limited. Vitals/I&O/Wt Last Vital Signs Temp 97.8 F 06/17/21 06:00 Pulse 62 06/17/21 06:00 Resp 17 06/17/21 06:00 BP 110/66 06/17/21 06:00 Pulse Ox 97 06/17/21 06:00 Weight last 48 hrs Weight 77.111 kg Data NPU : 06/13/21 07:21 06/13/21 07:21 A&P Additional A&P Information (1) Acute psychosis: (2) Psychotic disorder: (3) Generalized epilepsy: (4) Tremor due to disorder of central nervous system: Additional A&P Information This is a 46-year-old white female who presents with clear jacob psychosis and confusion about the circumstances of her hospitalization who presents unwilling to consider medication. 1. Continue current medication. 2. Continue every 15 minute checks for safety. 3. Encourage individual, group and milieu therapies. 4. We will likely need to file a 21-day hold if she is resistant to ongoing treatment or medication. Involuntary Hold Information 96 Hour Hold: 96 Hour Involuntary Admission: Yes 96 Hour Hold Ending Date: 06/19/21 96 Hour Hold Ending Time: 07:00 Attestations NPU Medical Necessity Statement*: Inpatient hospitalization is medically necessary and the clinically appropriate intervention at this time. We will monitor medications and make changes as indicated. Likely length of stay 3 to 5 days. Coding Level of Care Code Acute Specifications Writer for Rey Rojo
[2021-06-17 14:00] VITALS: BP 102/67; PULSE 73; RESP 18; TEMP 36.4; O2SAT 98
[2021-06-17] MEDS: levETIRAcetam 500 mg Tablet 1500 MG PO (17:51)
[2021-06-17 20:30] VITALS: BP 119/84; PULSE 106; RESP 16; TEMP 36.9; O2SAT 98
[2021-06-18 06:00] VITALS: BP 128/72; PULSE 94; RESP 14; TEMP 36.9; O2SAT 96
[2021-06-18] MEDS: ARIPiprazole 10 mg Tablet PO (09:06)
[2021-06-18] MEDS: OLANZapine 10 mg TABLET PO ×2 (09:06→17:24)
[2021-06-18 14:00] VITALS: BP 101/77; PULSE 109; RESP 20; TEMP 36.7; O2SAT 98
[2021-06-18] MEDS: levETIRAcetam 500 mg Tablet 1500 MG PO (17:24)
--- NOTE | 2021-06-18 17:59 | PM.NPN ---
Subjective NPU Subjective: Interval history: Carmen presented with continued improvement on the medication. However she feels like she is completely improved which is clearly not accurate. Presents today we discussed the possibility of an Abilify injection. She reports she will consider. We also discussed that we filed a 21-day hold because it is unclear how to more days we need therapy for her as well as she continues to be resistant to her actual need for medication. She has begun to question whether the things she was thinking upon admission are actually true or not. Mental Status Exam MSE Comments: This is a well-nourished, well-developed white female in hospital scrubs with improving grooming but adequate eye contact. No abnormal movements. Somewhat cooperative with exam in no acute distress. Speech was normal rate and volume. Mood described as better affect less odd. Thought process organized, thought content: Patient denied suicidal or homicidal ideation, there were no delusions reported and her paranoid, persecutory and hyper rastafarian delusions are resolving, she denied auditory or visual hallucinations but described auditory and visual. Attention and concentration were intermittent and memory seemed unreliable but none were formally tested. She is alert and oriented times person and place. Insight and judgment are fair and impulse control is limited. Vitals/I&O/Wt Last Vital Signs Temp 99.1 F 06/18/21 20:35 Pulse 104 H 06/18/21 20:35 Resp 21 H 06/18/21 20:35 BP 113/82 06/18/21 20:35 Pulse Ox 94 06/18/21 20:35 Data NPU : 06/13/21 07:21 06/13/21 07:21 A&P Additional A&P Information (1) Acute psychosis: (2) Psychotic disorder: (3) Generalized epilepsy: (4) Tremor due to disorder of central nervous system: Additional A&P Information This is a 46-year-old white female who presents with clear jacob psychosis and confusion about the circumstances of her hospitalization who presents unwilling to consider medication. 1. Continue current medication. Consider increasing Abilify to 15 mg and attempt to get her to take the Abilify injection. We will work with social work to make sure she will be able get the injection post discharge. 2. Continue every 15 minute checks for safety. 3. Encourage individual, group and milieu therapies. 4. Filed the 21-day hold paperwork. Involuntary Hold Information 96 Hour Hold: 96 Hour Involuntary Admission: Yes 96 Hour Hold Ending Date: 06/19/21 96 Hour Hold Ending Time: 07:00 Attestations NPU Medical Necessity Statement*: Inpatient hospitalization is medically necessary and the clinically appropriate intervention at this time. We will monitor medications and make changes as indicated. Likely length of stay 2-4 days. Coding Level of Care Code Acute Unit Manager [employer] for Rey Rojo
--- NOTE | 2021-06-18 19:00 | PC.RESP ---
SMOKING CESSATION INFORMATION SENT TO PATIENT.
[2021-06-18 20:35] VITALS: BP 113/82; PULSE 104; RESP 21; TEMP 37.3; O2SAT 94
[2021-06-19 06:00] VITALS: BP 117/86; PULSE 84; RESP 19; TEMP 36.7; O2SAT 97
[2021-06-19] MEDS: OLANZapine 10 mg TABLET PO ×2 (09:10→20:28)
[2021-06-19] MEDS: ARIPiprazole 10 mg Tablet PO (09:11)
--- NOTE | 2021-06-19 13:33 | P.PN_ITS ---
Subjective NPU Subjective: Interval history: Carmen presents today reporting that she would like to leave but she was able to appreciate this show card writer's position about the possibility of an injection effectiveness. She endorsed that she would take the Abilify injection if we were able to get it arranged for after this hospitalization. We discussed continuing to take sure we had appropriate after care arranged prior to discharge and she reluctantly accepted. We discussed presented alternatively Invega injection and she understood and agreed proceed if we can arrange it as is documented in this note. Mental Status Exam MSE Comments: This is a well-nourished, well-developed white female in [facility] scrubs with improving grooming and adequate eye contact. No abnormal movements. Somewhat cooperative with exam in no acute distress. Speech was normal rate and volume. Mood described as better affect less odd. Thought process organized, thought content: Patient denied suicidal or homicidal id eation, there were no delusions reported and her paranoid, persecutory and hyper sikhism delusions are resolving, she denied auditory or visual hallucinations but described auditory and visual. Attention and concentration were intermittent and memory seemed unreliable but none were formally tested. She is alert and oriented times person and place. Insight and judgment are fair and impulse control is limited. Vitals/I&O/Wt Last Vital Signs Temp 98.1 F 06/19/21 06:00 Pulse 84 06/19/21 06:00 Resp 19 H 06/19/21 06:00 BP 117/86 06/19/21 06:00 Pulse Ox 97 06/19/21 06:00 Data NPU : 06/13/21 07:21 06/13/21 07:21 A&P Additional A&P Information (1) Acute psychosis: (2) Psychotic disorder: (3) Generalized epilepsy: (4) Tremor due to disorder of central nervous system: Additional A&P Information This is a 46-year-old white female who presents with clear jacob psychosis and confusion about the circumstances of her hospitalization who presents unwilling to consider medication. 1. Continue current medication. Consider increasing Abilify to 15 mg and attempt to get her to take the Abilify injection. We will work with social work to make sure she will be able get the injection post discharge. 2. Continue every 15 minute checks for safety. 3. Encourage individual, group and milieu therapies. 4. Awaiting 21-day hold hearing, but greater likelihood is that we will be discharging in the next 48 to 72 hours.. Involuntary Hold Information 96 Hour Hold: 96 Hour Involuntary Admission: Yes 96 Hour Hold Ending Date: 06/19/21 96 Hour Hold Ending Time: 07:00 Attestations NPU Medical Necessity Statement*: Inpatient hospitalization is medically necessary and the clinically appropriate intervention at this time. We will monitor medications and make changes as indicated. Likely length of stay 2-3 days. Coding Level of Care Code Acute Stave Bolt Equalizer for Rey Rojo
[2021-06-19 14:00] VITALS: BP 126/78; PULSE 113; RESP 20; TEMP 36.3; O2SAT 98
[2021-06-19] MEDS: levETIRAcetam 500 mg Tablet 1500 MG PO (17:23)
[2021-06-19 19:47] VITALS: BP 99/66; PULSE 72; RESP 17; TEMP 37.2; O2SAT 98
[2021-06-20 06:00] VITALS: BP 112/64; PULSE 74; RESP 20; TEMP 36.5; O2SAT 95
[2021-06-20] MEDS: ARIPiprazole 10 mg Tablet PO (08:21)
[2021-06-20] MEDS: OLANZapine 10 mg TABLET PO ×2 (08:21→21:55)
[2021-06-20 14:00] VITALS: BP 104/77; PULSE 94; RESP 18; TEMP 36.7; O2SAT 96
[2021-06-20] MEDS: levETIRAcetam 500 mg Tablet 1500 MG PO (16:34)
[2021-06-20] MEDS: ARIPiprazole Maintena 400 MG IM (16:59)
--- NOTE | 2021-06-20 17:04 | PM.NPN ---
Subjective NPU Subjective: Interval history: Carmen presents today reporting that she is continuing to feel better on the Abilify and is open to the injection. We have done our due diligence to try to ensure that she has a viable access point for her future prescriptions outpatient. However we will give her access to the oral medication and explained to her that she only needs it for some reason this falls through. We discussed discharge in the morning. Mental Status Exam MSE Comments: This is a well-nourished, well-developed white female in hospital scrubs with improving grooming and adequate eye contact. No abnormal movements. More cooperative with exam in no acute distress. Speech was normal rate and volume. Mood described as better affect less odd. Thought process organized, thought content: Patient denied suicidal or homicidal ideation, there were no delusions reported and her paranoid, persecutory and hyper cheondoism delusions are resolving, she denied auditory or visual hallucinations. Attention and concentration were intact and memory seemed more reliable but none were formally tested. She is alert and oriented times 3. Insight and judgment are fair and impulse control is limited, but improving. Vitals/I&O/Wt Last Vital Signs Temp 97.9 F 06/20/21 21:10 Pulse 119 H 06/20/21 21:10 Resp 20 H 06/20/21 21:10 BP 106/79 06/20/21 21:10 Pulse Ox 99 06/20/21 21:10 Data NPU : 06/13/21 07:21 06/13/21 07:21 A&P Additional A&P Information (1) Acute psychosis: (2) Psychotic disorder: (3) Generalized epilepsy: (4) Tremor due to disorder of central nervous system: Additional A&P Information This is a 46-year-old white female who presents with clear jacob psychosis and confusion about the circumstances of her hospitalization who presents unwilling to consider medication. 1. Continue current medication. Start Abilify injection 400 mg IM of Abilify Maintena to be given today. 2. Continue every 15 minute checks for safety. 3. Encourage individual, group and milieu therapies. 4. We will discontinue 21-day hold and plan discharge in the morning Involuntary Hold Information 96 Hour Hold: 96 Hour Involuntary Admission: Yes 96 Hour Hold Ending Date: 06/19/21 96 Hour Hold Ending Time: 07:00 Attestations NPU Medical Necessity Statement*: Inpatient hospitalization is medically necessary and the clinically appropriate intervention at this time. We will monitor medications and make changes as indicated. Likely length of stay 1-2 days. Coding Level of Care Code Acute Broadcast Systems Engineer for Rey Rojo
[2021-06-20 21:10] VITALS: BP 106/79; PULSE 119; RESP 20; TEMP 36.6; O2SAT 99
[2021-06-21 06:00] VITALS: BP 104/76; PULSE 110; RESP 20; TEMP 36.5; O2SAT 94
[2021-06-21] MEDS: OLANZapine 10 mg TABLET PO (07:58)
[2021-06-21] MEDS: ARIPiprazole 10 mg Tablet PO (07:58)
[2021-06-21] MEDS: acetaminophen 325 mg Tablet 650 MG PO (10:54)
--- NOTE | 2021-06-21 11:29 | P.DS_ITS ---
Diagnoses at Discharge Discharge Diagnosis (1) Acute psychosis: Status: Acute (2) Psychotic disorder: Status: Acute (3) Generalized epilepsy: Status: Acute (4) Tremor due to disorder of central nervous system: Status: Acute Reason for Visit Reason for Visit: unable to sleep x 4 days Brief History: History of Present Illness Carmen Bruno is a 46 year old female seizures and no reported past psychiatric history presented to the emergency department with family secondary to concerns of patient's pressured speech, delusional thoughts and not sleeping over the past 4 days. Patient states that she had not slept for the past 4 days but does not recall any incidents or ingestion of any intoxicants other than her daily use of marijuana for which she states she typically smokes 1 joint a day at most and does not recall any changes from her usual use. She denies using any other illicit substances and denies any use of alcohol. Patient's last neurology outpatient visit in May indicated that she is supposed to be on Sinemet but patient reports no use of any Sinemet and reports Keppra as her only medication that she takes daily. Patient was trying to leave the ER and was provided a dose of olanzapine 5 mg while in emergency department. Patient had been medi manjula cleared prior to admission. Patient denies any past or current depressive symptoms, denies any sustained low mood states, denies any past major depressive episodes and denies any past or current suicidal ideation or any history of suicide attempts or self-harm behavior. Patient describes a previous similar episode of having racing thoughts approximately 3 years ago which she states only lasted for a day or 2 which she describes as I have a bunch of things inside of my head that are trying to get out. She denies any periods of pressured speech, impulsive or reckless behavior. Patient reports that she has had past auditory hallucinations approximately 3 years ago but currently denies any auditory hallucinations. She denies any visual hallucinations but continues to speak with hyper restorationism themed delusions believing that her [id number] is possessed by demons and that voices are telling her to leave her . Psychiatric review of systems is otherwise negative. Patient denies past psychiatric treatment and denies past psychiatric hospitalizations but is currently followed by Dr. Lieberman outpatient for history of seizures. Patient is and currently works at a nearby [employer]. Hospital Course Hospital Course Carmen presented to the emergency department with pressured speech, poor sleep and delusional thinking. She was admitted to the neuropsychiatric unit for definitive treatment of those issues. On the unit she slowly acclimated to the individual, group and milieu therapies provided. Eventually she was started on Abilify which was titrated to effect. She ultimately took the Abilify Maintena injection and she showed marked improvement. She was able to contract for safety prior to discharge. During the hospitalization, patient had routine laboratory studies which were within normal limits except for few outliers. Additionally there was a general medical evaluation which was also within normal limits and revealed no new acute processes. Discharge Summary: At the time of discharge, lethality was denied and psychosis was resolving. Mood and anxiety were well managed. Patient endorsed a plan to follow-up with the aftercare recommendations of the treatment team. Patient was evaluated and deemed to be absent credible lethality, and had achieved the maximum benefit from an inpatient hospitalization, so was discharged. Involuntary Hold Information 96 Hour Hold: 96 Hour Involuntary Admission: Yes 96 Hour Hold Ending Date: 06/19/21 96 Hour Hold Ending Time: 07:00 Mental Status Exam MSE Comments: This is a well-nourished, well-developed white female in hospital scrubs with improving grooming and adequate eye contact. No abnormal movements. More cooperative with exam in no acute distress. Speech was normal rate and volume. Mood described as better affect less odd. Thought process organized, thought content: Patient denied suicidal or homicidal ideation, there were no delusions reported and her paranoid, persecutory and hyper restorationism delusions are resolving, she denied auditory or visual hallucinations. Attention and concentration were intact and memory seemed more reliable but none were formally tested. She is alert and oriented times 3. Insight and judgment are fair and impulse control is limited, but improving. Discharge Data Vitals: Last Vital Signs Temp 97.7 F 06/21/21 06:00 Pulse 110 H 06/21/21 06:00 Resp 20 H 06/21/21 06:00 BP 104/76 06/21/21 06:00 Pulse Ox 94 06/21/21 06:00 Discharge Plan Discharge Patient Disposition: Home Condition: Stable Prescriptions: New olanzapine 10 mg Tablet 10 mg PO 0900,2100 30 Days Qty: 60 RF: 1 aripiprazole 10 mg Tablet 10 mg PO DAILY 30 Days Qty: 14 RF: 0 Abilify Maintena 400 mg suspension,extended rel recon 400 mg IM Q28D 28 Days Qty: 1 RF: 2 Continued acetaminophen [Tylenol Extra Strength] 500 mg Tablet 1,000 mg PO PRN RF: 0 levetiracetam [Keppra XR] 750 mg tablet extended release 24 hr See Rx Instructions .ROUTE .COMPLEX RF: 0 carbidopa-levodopa 25-100 mg tablet 25 - 100 tab PO TID RF: 0 Discharge Orders: Discharge Order (Routine); Ordered 06/21/21 Ordered By: Nilson Hu Discharge Diet: Regular Discharge Activity: Resume usual activity Patient Instructions: Depression (DC), Generalized Anxiety Disorder (DC), Suicide Prevention for Adults (DC), Opioid Safety Discharge Attestations NPU Time Spent in Discharge Care*: less than 30 min Specific Discharge Activities: Specific discharge activities: educating patient, discussing with renal case manager/social workers/dc planners, do cumenting/other paperwork and evaluating patient/reviewing data Coding Level of Care Code Acute Chg FW DC note Diagnoses Acute psychosis F23 Psychotic disorder F29 Generalized epilepsy G40.309 Tremor due to disorder of central nervous system R25.1; G96.9
[2021-06-21 11:32] VITALS: BP 104/76; PULSE 110; RESP 20; TEMP 36.5; O2SAT 94
== END 2021-06-21 14:35 | disposition home or self-care (01) | DRG 885 ==
LOC: ER 07:15 → NP 10:02
PROVIDERS: Admitting Provider Psychiatry & Neurology Psychiatry; Emergency Provider Family Medicine; PCP Specialist; Visit Provider Psychiatry & Neurology Psychiatry
DX: F23 Brief psychotic disorder (principal); F30.2 Manic episode, severe with psychotic symptoms; G40.409 Other generalized epilepsy and epileptic syndromes, not intractable, without status epilepticus; F17.210 Nicotine dependence, cigarettes, uncomplicated; F12.90 Cannabis use, unspecified, uncomplicated; Z72.820 Sleep deprivation
CPT/HCPCS: 80053; 80306; 80307; 81001; 81025; 85025; 96372; 99285; J2060

== ENCOUNTER → 2021-09-26 11:04 | Outpatient (BNVA) | payer SELFPAY | PROVIDERS: PCP Specialist; Visit Provider Specialist | DX: R25.1 Tremor, unspecified (principal); G96.9 Disorder of central nervous system, unspecified; F31.9 Bipolar disorder, unspecified; Z87.891 Personal history of nicotine dependence | CPT/HCPCS: 96372; 99214 ==

== ENCOUNTER 2024-05-13 14:49 | Emergency (ER) | payer MEDICARE, SELFPAY ==
[2024-05-13 14:50] VITALS: BP 150/90; PULSE 96; RESP 18; TEMP 36.7; O2SAT 100; BMI 28.1
--- NOTE | 2024-05-13 16:12 | CTR_ITS ---
PROCEDURE INFORMATION: Exam: CT Head Without Contrast Exam date and time: 05/13/2024 4:35 PM Age: 48 years old Clinical indication: Patient HX: HX of seizures; Additional info: Breakthrough seizure TECHNIQUE: Imaging protocol: Computed tomography of the head without contrast. Radiation optimization: All CT scans at this facility use at least one of these dose optimization techniques: automated exposure control; mA and/or kV adjustment per patient size (includes targeted exams where dose is matched to clinical indication); or iterative reconstruction. COMPARISON: No relevant prior studies available. RADIATION DOSE METRICS: Total DLP (mGy-cm): 1015 FINDINGS: Brain: No intracranial hemorrhage. No mass effect, edema or midline shift. There are vague areas of decreased attenuation within the periventricular white matter likely secondary to chronic microvascular changes. Mild age related cerebral volume loss resulting in prominence of cortical sulci. Cerebral ventricles: Unremarkable for age and degree of cerebral volume loss. Paranasal sinuses: Visualized sinuses are unremarkable. No fluid levels. Mastoid air cells: Visualized mastoid air cells are well aerated. Bones/joints: Unremarkable. No acute fracture. Soft tissues: Unremarkable. CT/CT head wo con* [id number] IMPRESSION: No acute intracranial abnormality.
--- NOTE | 2024-05-13 16:31 | ED_ITS ---
HPI - Seizure 2 General: Chief Complaint: Seizure Stated Complaint: seizures Time Seen by Provider: 05/13/24 15:03 History of Present Illness: HPI Narrative: 48-year-old female presents emergency de partment chief complaint of having a seizure present prior to arrival this was witnessed by her mother. Patient is taking Keppra for her seizures she apparently may have forgotten a dose or 2 of it mother reports that the patient was on the couch when the seizure developed and when she had to place her into the recovery position. Patient has had no recent infections or illnesses reports no recent medication changes or any other associated symptoms. Associated symptoms: Deny chest pain, chills, fever(s) or malaise Review of Systems 2 General: Reports: 10 or more systems reviewed and unremarkable except in HPI and below Const: Denies: fever(s), chills, fatigue or malaise Eyes: Denies: change in vision or blurry vision Card: Denies: chest pain or palpitations Resp: Denies: dyspnea or productive cough GI: Denies: abdominal pain, nausea or vomiting : Denies: flank pain Musc: Denies: extremity pain or extremity swelling Skin/Breast: Denies: rash or pruritus Neuro: Reports: seizure-like activity Psych: Denies: anxiety or depression Ryan/Lymph: Denies: easy bleeding All/Imm: Denies: urticaria, throat swelling or facial swelling PFSH ED 2 PFSH: Family History Other Diabetes Social History Smoking and tobacco/nicotine status: former use of tobacco/nicotine (quit in 2019) Alcohol intake: never Substance/Drug Use: current Substance/Drug use frequency: daily Physical Exam 2 Narrative: EXAM NARRATIVE: On exam patient has no focal neurodeficits appears in no obvious acute distress patient was little confused upon initial exam possibly postictal Const: COMMON NORMALS: no acute distress, patient oriented x3 and healthy appearing HENMT: COMMON NORMALS: normocephalic and atraumatic HEAD & SCALP: n ormocephalic and atraumatic Eye: COMMON NORMALS: Equal, round and reactive pupils present and EOMs intact bilaterally PUPIL: Yes Equal, round and reactive pupils present Neck/C-Spine: COMMON NORMALS: full ROM, supple and no JVD Lymph: LYMPHATIC: no lymphadenopathy noted Chest: COMMONS NORMALS: normal inspection of the chest and normal palpation of entire chest wall Resp: COMMON NORMALS: normal respiratory effort, No retractions and clear to auscultation bilaterally EFFORT & INSPECTION: Yes able to speak in complete sentences and Yes symmetric chest movement AUSCULTATION: clear to auscultation bilaterally Cardio: COMMON NORMALS: no JVD, regular rate and regular rhythm RATE: r egular rate RHYTHM: regular rhythm GI: COMMON NORMALS: Normal to inspection, nondistended, normoactive bowel sounds present, Soft to palpation and non-tender INSPECTION: Yes normal to inspection PALPATION: Yes Soft to palpation : COMMON NORMALS: Yes no CVA tenderness BLADDER/KIDNEY EXAM: Yes no CVA tenderness Back/Pelvis: COMMON NORMALS: no CVA tenderness Extremity: COMMON NORMALS: normal to inspection and full ROM Neuro: COMMON NORMALS: patient oriented x3, CN's II-XII intact bilaterally, moves all extremities and no focal motor deficits Psych: COMMON NORMALS: mental status grossly normal, Normal thought process present, cooperative and normal affect THOUGHT PROCESS: Normal thought process present Skin: COMMON NORMALS: no rashes or lesions noted GENERAL SKIN EXAM: no rashes or lesions noted Course 2 Vital Signs: Vital signs: Vital Signs Temperature 98.1 F 05/13/24 14:50 Pulse Rate 96 05/13/24 14:50 Respiratory Rate 18 05/13/24 14:50 Blood Pressure 150/90 05/13/24 14:50 Pulse Oximetry 100 05/13/24 14:50 Oxygen Delivery Me thod Room Air 05/13/24 14:50 MDM - Seizure MDM Narrative Medical decision making narrative: Due to patient's symptoms and condition lab work will be obtained imaging will be obtained patient's family is here and is also agreement to do a basic medical screening examination however due to patient's missing a dose or 2 medications I suspect that may be part of the contributing to the reason why she had a breakthrough seizure today patient will be maintaining seizure precautions as well. Patient was found have a urinary tract infection remainder labs unremarkable patient be subcu discharged home advised to continue on her Keppra as previously prescribed which return the interim if any of her symptoms persist or worsen. Lab Data 05/13/24 14:53 05/13/24 14:53 Labs: Radiology Impressions Head CT 05/13/24 16:12 IMPRESSION: No acute intracranial abnormality. Laboratory Results WBC 12.56 10^3/uL (3.29-11.43) H 05/13/24 14:53 RBC 4.15 10^6/uL (3.85-5.65) 05/13/24 14:53 Hgb 13.30 g/dL (11.27-16.99) 05/13/24 14:53 Hct 40.8 % (36-47) 05/13/24 14:53 MCV 98.3 fl (85-98) H 05/13/24 14:53 MCH 32.0 pg (27-33) 05/13/24 14:53 MCHC 32.6 g/dL (30-55) 05/13/24 14:53 RDW 12.7 % (12.1-15.1) 05/13/24 14:53 Plt Count 357 10^3/cmm (157-399) 05/13/24 14:53 MPV 11.2 fL (7.4-10.4) H 05/13/24 14:53 Neut % (Auto) 42.8 % 05/13/24 14:53 Lymph % (Auto) 44.1 % 05/13/24 14:53 [place] % (Auto) 8.4 % 05/13/24 14:53 Eos % (Auto) 3.9 % 05/13/24 14:53 Baso % (Auto) 0.6 % 05/13/24 14:53 Neut # (Auto) 5.36 10^3/uL (1.8-7.7) 05/13/24 14:53 Lymph # (Auto) 5.5 10^3/uL (0.8-4.8) H 05/13/24 14:53 [place] # (Auto) 1.1 10^3/uL (0.2-0.9) H 05/13/24 14:53 Eos # (Auto) 0.5 10^3/uL (0.0-0.8) 05/13/24 14:53 Baso # (Auto) 0.1 10^3/uL (0.0-0.1) 05/13/24 14:53 Nucleated RBC % (auto) 0 % 05/13/24 14:53 Nucleated RBCs # 0.0 /100WBC 05/13/24 14:53 Sodium 140 mmol/L (136-145) 05/13/24 14:53 Potassium 3.8 mmol/L (3.5-5.1) 05/13/24 14:53 Chloride 103 mmol/L (98-107) 05/13/24 14:53 Carbon Dioxide 21 mmol/L (22-29) L 05/13/24 14:53 Anion Gap 19.8 (5-19) H 05/13/24 14:53 BUN 10 mg/dL (6-20) 05/13/24 14:53 Creatinine 0.8 mg/dL (0.5-0.9) 05/13/24 14:53 GFR Calculation 76.9 mL/min (90-130) L 05/13/24 14:53 Glucose 86 mg/dL (65-115) 05/13/24 14:53 Calculated Osmolality 288 mOsm/kg (285-295) 05/13/24 14:53 Calcium 8.9 mg/dL (8.5-10.5) 05/13/24 14:53 Total Bilirubin 0.2 mg/dL (0.15-1.2) 05/13/24 14:53 AST 25 U/L (0-32) 05/13/24 14:53 ALT 25 U/L (0-33) 05/13/24 14:53 Alkaline Phosphatase 92 U/L (35-105) 05/13/24 14:53 Creatine Kinase 45 U/L (26-192) 05/13/24 14:53 Total Protein 7.0 g/dL (6.6-8.7) 05/13/24 14:53 Albumin 4.1 g/dL (3.5-5.2) 05/13/24 14:53 Globulin 2.9 g/dL (1.3-4.6) 05/13/24 14:53 Urine Color Yellow (Yellow) 05/13/24 16:54 Urine Appearance Slightly cloudy (CLEAR) 05/13/24 16:54 Urine pH 6.5 (5-7) 05/13/24 16:54 Ur Specific [place] 1.020 (1.005-1.030) 05/13/24 16:54 Urine Protein Neg (Negative) 05/13/24 16:54 Urine Glucose (UA) Norm (Normal) 05/13/24 16:54 Urine Ketones 1+ (Negative) H 05/13/24 16:54 Urine Blood 2+ (Negative) H 05/13/24 16:54 Urine Nitrate Negative (Negative) 05/13/24 16:54 Urine Bilirubin Neg (Negative) 05/13/24 16:54 Prot Sulfosalicylic Acd Negative (Negative) 05/13/24 16:54 Urine Urobilinogen Norm mg/dL (Negative) 05/13/24 16:54 Ur Leukocyte Esterase 2+ (Negative) H 05/13/24 16:54 Urine RBC 0-4 /hpf (0-2) H 05/13/24 16:54 Urine WBC 10-15 /hpf (0-5) H 05/13/24 16:54 Ur Squamous Epith Cells 25-40 /hpf (0-5) H 05/13/24 16:54 Amorphous Sediment Not Reportable 05/13/24 16:54 Urine Bacteria 1+ /hpf (NONE) H 05/13/24 16:54 Urine Mucus 1+ /hpf 05/13/24 16:54 All radiology interpretation(s) finalized by discharge Discharge Plan Discharge Patient Disposition: Home Clinical Impression: Breakthrough seizure, UTI (urinary tract infection) Condition: Stable Prescriptions: New Bactrim DS 800-160 mg tablet 1 tab PO BID 7 Days Qty: 14 0RF No Action levetiracetam [Keppra XR] 750 mg tablet extended release 24 hr 1,500 mg PO DAILY Qty: 180 3RF acetaminophen [Tylenol Extra Strength] 500 mg Tablet 1,000 mg PO PRN Discharge Orders: Discharge ED (Routine); Ordered 05/13/24 Ordered By: Phillip Kelsey Referrals: Ritu Lieberman MD [Primary Care Provider] - 1-3 days Discharge Activity: Resume usual activity Patient Instructions: Urinary Tract Infection - Women, Seizures, Recurrent Seizures in Adults (ED) Activity Restrictions/Additional Instructions: Take medications as prescribed please further follow-up your primary care doctor in 2 to 3 days increase your water consumption to reduce likelihood of additional infection symptoms, please return the interim if any of your symptoms persist or worse. Coding Level of Care Code ED Power Chisel Operator for Rey Rojo
[2024-05-13 16:34] LABS: Basophils # 0.1 10^3/uL (0.0-0.1); Basophils % 0.6 %; Eosinophils # 0.5 10^3/uL (0.0-0.8); Eosinophils % 3.9 %; Hematocrit 40.8 % (36-47); Lymphocytes # 5.5 10^3/uL (0.8-4.8); Lymphocytes % 44.1 %; Mean Corpuscular HGB Conc 32.6 g/dL (30-55); Mean Corpuscular Volume 98.3 fl (85-98); Mean Platelet Volume 11.2 fL (7.4-10.4); Monocytes # 1.1 10^3/uL (0.2-0.9); Monocytes % 8.4 %; Neutrophils # 5.36 10^3/uL (1.8-7.7); Neutrophils % 42.8 %; Nucleated Red Blood Cells % 0 %; Platelet Count 357 10^3/cmm (157-399); Red Blood Count 4.15 10^6/uL (3.85-5.65); Red Cell Distribution Width 12.7 % (12.1-15.1); White Blood Count 12.56 10^3/uL (3.29-11.43)
[2024-05-13 17:01] LABS: Alanine Aminotransferase 25 U/L (0-33); Albumin Level 4.1 g/dL (3.5-5.2); Alkaline Phosphatase 92 U/L (35-105); Anion Gap 19.8 (5-19); Aspartate Amino Transferase 25 U/L (0-32); Blood Urea Nitrogen 10 mg/dL (6-20); Calcium 8.9 mg/dL (8.5-10.5); Carbon Dioxide 21 mmol/L (22-29); Chloride 103 mmol/L (98-107); Creatine Phosphokinase 45 U/L (26-192); Creatinine Clr Calc Pharmacy 95.5446; Globulin 2.9 g/dL (1.3-4.6); Glomerular Filtration Rate 76.9 mL/min (90-130); Glucose 86 mg/dL (65-115); Osmolality Calculated 288 mOsm/kg (285-295); Potassium 3.8 mmol/L (3.5-5.1); Sodium 140 mmol/L (136-145); Total Bilirubin 0.2 mg/dL (0.15-1.2)
[2024-05-13 17:09] LABS: Add Urine Microscopic? YES; Bacteria Urine 1+ /hpf; Bilirubin Urine Neg (Negative); Blood Urine 2+ (Negative); Glucose Urine UA Norm (Normal); Ketones Urine 1+ (Negative); Leukocyte Esterase Urine 2+ (Negative); Mucus Urine 1+ /hpf; Nitrate Urine Negative (Negative); Protein Urine Neg (Negative); RBC Urine 0-4 /hpf (0-2); Squamous Epithelial Cell Urine 25-40 /hpf (0-5); Sulfosalicylic Acid Urine Negative (Negative); Urine Appearance Slightly Cloudy (CLEAR); Urine Color Yellow (Yellow); Urobilinogen Urine Norm (Negative); pH Urine 6.5 (5-7)
[2024-05-13] MEDS: ibuprofen 600 mg Tablet PO (18:19)
--- NOTE | 2024-05-13 18:54 | W.ED.SEIZURE ---
HPI - Seizure General: Chief Complaint: Seizure Stated Complaint: seizures Time Seen by Provider: 05/13/24 15:03 PFSH ED PFSH: Family History Other Diabetes Social History Smoking and tobacco/nicotine status: former use of tobacco/nicotine (quit in 2019) Alcohol intake: never Substance/Drug Use: current Substance/Drug use frequency: daily Course Vital Signs: Vital signs: Vital Signs Temperature 98.1 F 05/13/24 14:50 Pulse Rate 96 05/13/24 14:50 Respiratory Rate 18 05/13/24 14:50 Blood Pressure 150/90 05/13/24 14:50 Pulse Oximetry 100 05/13/24 14:50 Oxygen Delivery Me thod Room Air 05/13/24 14:50 MDM - Seizure Lab Data 05/13/24 14:53 05/13/24 14:53 Labs: Radiology Impressions Head CT 05/13/24 16:12 IMPRESSION: No acute intracranial abnormality. Laboratory Results WBC 12.56 10^3/uL (3.29-11.43) H 05/13/24 14:53 RBC 4.15 10^6/uL (3.85-5.65) 05/13/24 14:53 Hgb 13.30 g/dL (11.27-16.99) 05/13/24 14:53 Hct 40.8 % (36-47) 05/13/24 14:53 MCV 98.3 fl (85-98) H 05/13/24 14:53 MCH 32.0 pg (27-33) 05/13/24 14:53 MCHC 32.6 g/dL (30-55) 05/13/24 14:53 RDW 12.7 % (12.1-15.1) 05/13/24 14:53 Plt Count 357 10^3/cmm (157-399) 05/13/24 14:53 MPV 11.2 fL (7.4-10.4) H 05/13/24 14:53 Neut % (Auto) 42.8 % 05/13/24 14:53 Lymph % (Auto) 44.1 % 05/13/24 14:53 Patrick % (Auto) 8.4 % 05/13/24 14:53 Eos % (Auto) 3.9 % 05/13/24 14:53 Baso % (Auto) 0.6 % 05/13/24 14:53 Neut # (Auto) 5.36 10^3/uL (1.8-7.7) 05/13/24 14:53 Lymph # (Auto) 5.5 10^3/uL (0.8-4.8) H 05/13/24 14:53 [place] # (Auto) 1.1 10^3/uL (0.2-0.9) H 05/13/24 14:53 Eos # (Auto) 0.5 10^3/uL (0.0-0.8) 05/13/24 14:53 Baso # (Auto) 0.1 10^3/uL (0.0-0.1) 05/13/24 14:53 Nucleated RBC % (auto) 0 % 05/13/24 14:53 Nucleated RBCs # 0.0 /100WBC 05/13/24 14:53 Sodium 140 mmol/L (136-145) 05/13/24 14:53 Potassium 3.8 mmol/L (3.5-5.1) 05/13/24 14:53 Chloride 103 mmol/L (98-107) 05/13/24 14:53 Carbon Dioxide 21 mmol/L (22-29) L 05/13/24 14:53 Anion Gap 19.8 (5-19) H 05/13/24 14:53 BUN 10 mg/dL (6-20) 05/13/24 14:53 Creatinine 0.8 mg/dL (0.5-0.9) 05/13/24 14:53 GFR Calculation 76.9 mL/min (90-130) L 05/13/24 14:53 Glucose 86 mg/dL (65-115) 05/13/24 14:53 Calculated Osmolality 288 mOsm/kg (285-295) 05/13/24 14:53 Calcium 8.9 mg/dL (8.5-10.5) 05/13/24 14:53 Total Bilirubin 0.2 mg/dL (0.15-1.2) 05/13/24 14:53 AST 25 U/L (0-32) 05/13/24 14:53 ALT 25 U/L (0-33) 05/13/24 14:53 Alkaline Phosphatase 92 U/L (35-105) 05/13/24 14:53 Creatine Kinase 45 U/L (26-192) 05/13/24 14:53 Total Protein 7.0 g/dL (6.6-8.7) 05/13/24 14:53 Albumin 4.1 g/dL (3.5-5.2) 05/13/24 14:53 Globulin 2.9 g/dL (1.3-4.6) 05/13/24 14:53 Urine Color Yellow (Yellow) 05/13/24 16:54 Urine Appearance Slightly cloudy (CLEAR) 05/13/24 16:54 Urine pH 6.5 (5-7) 05/13/24 16:54 Ur Specific [place] 1.020 (1.005-1.030) 05/13/24 16:54 Urine Protein Neg (Negative) 05/13/24 16:54 Urine Glucose (UA) Norm (Normal) 05/13/24 16:54 Urine Ketones 1+ (Negative) H 05/13/24 16:54 Urine Blood 2+ (Negative) H 05/13/24 16:54 Urine Nitrate Negative (Negative) 05/13/24 16:54 Urine Bilirubin Neg (Negative) 05/13/24 16:54 Prot Sulfosalicylic Acd Negative (Negative) 05/13/24 16:54 Urine Urobilinogen Norm mg/dL (Negative) 05/13/24 16:54 Ur Leukocyte Esterase 2+ (Negative) H 05/13/24 16:54 Urine RBC 0-4 /hpf (0-2) H 05/13/24 16:54 Urine WBC 10-15 /hpf (0-5) H 05/13/24 16:54 Ur Squamous Epith Cells 25-40 /hpf (0-5) H 05/13/24 16:54 Amorphous Sediment Not Reportable 05/13/24 16:54 Urine Bacteria 1+ /hpf (NONE) H 05/13/24 16:54 Urine Mucus 1+ /hpf 05/13/24 16:54 All radiology interpretation(s) finalized by discharge Discharge Plan Discharge Patient Disposition: Home Clinical Impression: Breakthrough seizure UTI (urinary tract infection) Qualifiers: Urinary tract infection type: acute cystitis Hematuria presence: without hematuria Qualified Code(s): N30.00 - Acute cystitis without hematuria Condition: Stable Prescriptions: New Bactrim DS 800-160 mg tablet 1 tab PO BID 7 Days Qty: 14 0RF No Action levetiracetam [Keppra XR] 750 mg tablet extended release 24 hr 1,500 mg PO DAILY Qty: 180 3RF acetaminophen [Tylenol Extra Strength] 500 mg Tablet 1,000 mg PO PRN Discharge Orders: Discharge ED (Routine); Ordered 05/13/24 Ordered By: Phillip Kelsey Referrals: Ritu Lieberman MD [Primary Care Provider] - 1-3 days Discharge Activity: Resume usual activity Patient Instructions: Recurrent Seizures in Adults (ED), Seizures, Urinary Tract Infection - Women Activity Restrictions/Additional Instructions: Take medications as prescribed please further follow-up your primary care doctor in 2 to 3 days increase your water consumption to reduce likelihood of additional infection symptoms, please return the interim if any of your symptoms persist or worse. Coding Level of Care Code ED Judicial Administrative Assistant for Rey Rojo
== END 2024-05-13 19:17 | disposition home or self-care (01) ==
PROVIDERS: Emergency Provider Emergency Medicine; PCP Specialist
DX: G40.89 Other seizures (principal); N39.0 Urinary tract infection, site not specified; Z87.891 Personal history of nicotine dependence
CPT/HCPCS: 70450; 80053; 81001; 82550; 85025; 99284

== ENCOUNTER → 2024-05-18 09:38 | Outpatient (BNVA) | payer MEDICARE, SELFPAY | PROVIDERS: PCP Specialist; Visit Provider Specialist | DX: R25.1 Tremor, unspecified (principal); G96.9 Disorder of central nervous system, unspecified; G40.309 Generalized idiopathic epilepsy and epileptic syndromes, not intractable, without status epilepticus | CPT/HCPCS: 99214; 99215 ==

== ENCOUNTER → 2025-05-17 07:58 | Outpatient (BNVA) | payer MEDICARE, SELFPAY | PROVIDERS: PCP Specialist; Visit Provider Specialist | DX: G40.309 Generalized idiopathic epilepsy and epileptic syndromes, not intractable, without status epilepticus (principal); R25.1 Tremor, unspecified; G96.9 Disorder of central nervous system, unspecified | CPT/HCPCS: 99214 ==